=== PATIENT | male | born 1985 | race Caucasian/White ===

== ENCOUNTER 2018-02-07 15:26 | Emergency (ER) | payer MEDICAID, OTHER ==
[~2018-02-07] VITALS: Ht 180.3 cm; Wt 70.4 kg
[~2018-02-07 15:26] MED LIST: CHLO473M2 PO; CLIN300C85 PO; ONDA4TAB6 PO
[2018-02-07] MEDS ORDERED: naloxone 2mg/2ml inj IM STA (15:32)
[2018-02-07] MEDS ORDERED: normal saline 1000ML IV soln IVB ONE (15:35)
[2018-02-07 16:11] VITALS: BP 129/79
== END 2018-02-07 16:25 | disposition home or self-care (01) ==
LOC: ER 15:26
DX: T40.1X4A Poisoning by heroin, undetermined, initial encounter (principal); F11.90 Opioid use, unspecified, uncomplicated; F15.90 Other stimulant use, unspecified, uncomplicated; Z79.2 Long term (current) use of antibiotics; Z79.899 Other long term (current) drug therapy; Y92.89 Other specified places as the place of occurrence of the external cause
CPT/HCPCS: 96372; 99284; J2310; J7030

== ENCOUNTER 2018-03-03 17:40 | Emergency (ER) | payer MEDICAID, OTHER ==
[~2018-03-03] VITALS: Ht 180.3 cm; Wt 72.7 kg
[2018-03-03 17:42] VITALS: BP 123/64
[2018-03-03] MEDS ORDERED: PRED20TA PO (17:57)
[2018-03-03] MEDS ORDERED: AZIT250T2 PO (17:57)
[2018-03-03] MEDS ORDERED: GUAI120015 PO (17:57)
[2018-03-03] MEDS ORDERED: ALBU6.7H INH (17:57)
== END 2018-03-03 18:03 | disposition home or self-care (01) ==
LOC: ER 17:40
DX: J20.9 Acute bronchitis, unspecified (principal); F15.90 Other stimulant use, unspecified, uncomplicated; F11.90 Opioid use, unspecified, uncomplicated; Z79.899 Other long term (current) drug therapy
CPT/HCPCS: 99283

== ENCOUNTER → 2020-07-01 | Emergency (ER) | payer MEDICAID ==
[~2020-07-01] VITALS: Ht 180.3 cm; Wt 84.1 kg
[~2020-07-01] MED LIST changes: +ALBU6.7H9 INH; +CLIN-97 PO; -CLIN300C85 PO; +GUAI120015 PO; +acetaminophen 325mg tablet PO ONE
[2020-07-01 05:37] VITALS: BP 135/83
== END | disposition home or self-care (01) ==
LOC: ER 05:05
DX: L84 Corns and callosities (principal); L60.0 Ingrowing nail; R10.9 Unspecified abdominal pain; F15.90 Other stimulant use, unspecified, uncomplicated; F11.90 Opioid use, unspecified, uncomplicated; F41.9 Anxiety disorder, unspecified; Z79.899 Other long term (current) drug therapy; Z59.0 Homelessness
CPT/HCPCS: 99282

== ENCOUNTER 2024-02-27 00:17 | Emergency (ER) | payer MEDICAID ==
[~2024-02-27] VITALS: Ht 180.3 cm; Wt 68.2 kg
[~2024-02-27 00:17] MED LIST changes: +ALBU6.7H14 INH; -ALBU6.7H9 INH; -acetaminophen 325mg tablet PO ONE
[2024-02-27 00:50] LABS: BILIRUBIN,URINE NEGATIVE (Neg); CLARITY,URINE SLIGHTLY CLOUDY (Clear); COLOR,URINE YELLOW (Yellow); GLUCOSE, URINE NEGATIVE (Neg); KETONES,URINE NEGATIVE (Neg); LEUKOCYTE ESTERASE ,URINE NEGATIVE (Neg); NITRITES, URINE NEGATIVE (Neg); OCCULT BLOOD,URINE LARGE (Neg); PH,URINE 5.5 (4.8-8.0); PROTEIN,URINE 100 mg/dl (Neg)
[2024-02-27 01:04] LABS: UA COLLECTION TYPE NON-SPECIFIED
[2024-02-27 01:05] LABS: BACTERIA,URINE FEW /HPF (Neg); RBC,URINE TNTC /HPF (0-2); SQUAMOUS EPITHELIAL CELL,UR FEW /LPF (FEW); TRANSITIONAL EPI CELLS,URINE FEW /HPF; WBC,URINE 0-4 /HPF (0-4)
[2024-02-27 01:07] LABS: YEAST MODERATE /HPF (NEGATIVE)
[2024-02-27] MEDS ORDERED: CEPH-585 PO (02:32)
[2024-02-27 02:43] VITALS: BP 130/80; PULSE 90; RESP 16; TEMP 98; O2SAT 99
== END 2024-02-27 02:45 | disposition home or self-care (01) ==
LOC: ER 00:18
DX: F11.90 Opioid use, unspecified, uncomplicated (principal); R30.0 Dysuria; R31.9 Hematuria, unspecified; Z79.899 Other long term (current) drug therapy; Z79.2 Long term (current) use of antibiotics; F41.9 Anxiety disorder, unspecified; F15.90 Other stimulant use, unspecified, uncomplicated
CPT/HCPCS: 81001; 87088; 99283

== ENCOUNTER 2024-12-15 09:51 | Emergency (ER) | payer MEDICAID ==
[~2024-12-15] VITALS: Ht 180.3 cm; Wt 87.5 kg
[2024-12-15 10:56] LABS: BILIRUBIN,URINE NEGATIVE (Neg); CLARITY,URINE CLOUDY (Clear); COLOR,URINE YELLOW (Yellow); GLUCOSE, URINE NEGATIVE (Neg); KETONES,URINE NEGATIVE (Neg); LEUKOCYTE ESTERASE ,URINE NEGATIVE (Neg); NITRITES, URINE NEGATIVE (Neg); OCCULT BLOOD,URINE LARGE (Neg); PROTEIN,URINE TRACE mg/dl (Neg); UROBILINOGEN,URINE 0.2 E.U/dL (0.2-1.0)
[2024-12-15 11:01] LABS: UA COLLECTION TYPE FOLEY CATH
[2024-12-15 11:08] LABS: BACTERIA,URINE FEW /HPF (Neg); MUCUS STRANDS NONE SEEN /LPF (Neg); SQUAMOUS EPITHELIAL CELL,UR NONE SEEN /LPF (FEW); WBC,URINE 0-4 /HPF (0-4)
[2024-12-15 11:09] LABS: HYALINE CASTS 0-3 /LPF (NEGATIVE); RENAL CELLS, URINE FEW /HPF
[2024-12-15 11:10] LABS: RBC,URINE TNTC /HPF (0-2)
[2024-12-15] MEDS ORDERED: TAMS-55 PO (11:15)
[2024-12-15] MEDS ORDERED: ONDA-243 PO (11:52)
[2024-12-15] MEDS: ondansetron 4mg rapidly disintigrating tab PO ONE (11:56)
[2024-12-15 12:06] VITALS: BP 134/88; PULSE 98; RESP 18; TEMP 98.5; O2SAT 96
== END 2024-12-15 11:57 | disposition home or self-care (01) ==
LOC: ER 09:52
DX: R33.9 Retention of urine, unspecified (principal); F41.9 Anxiety disorder, unspecified
CPT/HCPCS: 51702; 51798; 74176; 81001; 99284; A4314; 74177; A4358

== ENCOUNTER 2025-02-18 12:30 | Emergency (ER) | payer MEDICAID ==
[~2025-02-18] VITALS: Ht 175.3 cm; Wt 77.6 kg
[~2025-02-18 12:30] MED LIST changes: +ONDA-243 PO
[2025-02-18 12:48] VITALS: BP 144/78; PULSE 96; RESP 18; TEMP 97.8; O2SAT 98
--- NOTE | 2025-02-18 21:01 | Physician Documentation ---
History of Present Illness ~ Chief Complaint: Wrist pain Stated Complaint: L WRIST PAIN DOC NOTE Time Seen by MD: 13:25 Primary Medical Doctor: NONE HPI Patient is seen today with complaints of left wrist drop. Patient states symptoms started this morning. Patient states he has three friends that also have wrist drop. Patient denies any injury denies any pain. He simply states he has left wrist drop and he has been licking up on YouTube the signs and symptoms and states he must have pinched nerve in his upper arm. Patient denies any fevers or recent illness and denies any fevers or chills or chest pain or shortness of breath or abdominal pain or nausea, vomiting, diarrhea. Patient has no other concern or complaint at this time. Tetanus within 5 years: Yes (2014) Medication Reconciliation Allergies: Coded Allergies: No Known Allergies (Unverified , 02/18/25) Scheduled Albuterol Sulfate (Proventil Hfa), 2 PUFFS INH Q6H Chlorhexidine Gluconate (Chlorhexidine Gluconate), 10 ML PO BID Clindamycin HCL* (Clindamycin HCL*), 1 CAP PO Q6H Guaifenesin (Mucinex), 1 TAB PO Q12H Ondansetron Hcl (Zofran), 1 TAB PO Q8H Scheduled PRN ONDANSETRON ODT 4mg tablet (Ondansetron Odt), 1 TABLET PO Q6H PRN for nausea/vomiting Past Medical History Past Medical History: *RENAL/*, Anxiety Past Surgical History: noncontributory Alcohol Use: None Drug Use: methamphetamine, heroin Lives In: Home Occupation: employed Review of Systems Constitutional: Denies: chills, fever, weakness Eyes: Denies: pain, blurred vision ENT: Denies: ear pain, nose pain, throat pain, mouth pain Respiratory: Denies: cough, shortness of breath Cardiovascular: Denies: chest pain, palpitations Gastrointestinal: Denies: abdominal pain, nausea, vomiting Genitourinary: Denies: burning, dysuria Male Genitalia: Denies: penile discharge, testicular pain Neurological: Denies: headache, dizziness Musculoskeletal: Denies: pain, swelling Integumentary: Denies: rash, lesions Allergic/Immunologic: Denies: hives, itching Hematologic/Lymphatic: Denies: no symptoms reported Psychiatric: Denies: depression, anxiety Physical Exam Vital Signs: Temperature: 97.8, Source: Temporal, Heart Rate: 96, Respiratory Rate: 18, BP: 144/78, Pulse Oximetry: 98, Weight: 77.600 Physical Exam General: Awake and Alert, no acute distress. HEENT: Conjunctiva pink, Sclera clear, Mucus Membranes moist. Neck: Supple without masses and tenderness. Resp: Unlabored. Lungs clear to auscultation bilaterally. Heart: Regular Rate and rhythm, normal S1 and S2 without murmur, rub or gallop. Musculoskeletal: Patient on exam seemed to have minimal effort at 1st with wrist extension however with appropriate coaxing the patient actually appears to have 5/5 strength of wrist extension bilaterally. Patient however seems to have difficulty with extension of his digits two through five. I do not appreciate any swelling or injury or laceration. Patient is otherwise neurovascularly intact distally. Motor function in his appears to be intact distally. Extremities: No cyanosis,clubbing or edema. Skin: Warm and Dry. Progress Results/Orders Results/Orders Vital Signs 02/18/25 12:48 Temp 97.8 Pulse 96 Resp 18 B/P (MAP) 144/78 Pulse Ox 98 Medical Decision Making Findings Patient is seen today with complaints of left wrist drop. Patient states symptoms started this morning. Patient states he has three friends that also have wrist drop. Patient denies any injury denies any pain. He simply states he has left wrist drop and he has been licking up on YouTube the signs and symptoms and states he must have pinched nerve in his upper arm. Patient denies any fevers or recent illness and denies any fevers or chills or chest pain or shortness of breath or abdominal pain or nausea, vomiting, diarrhea. Patient has no other concern or complaint at this time. Patient left prior to discharge paperwork being printed. I did however discuss with the patient at length of the need for him to follow up with primary care to get a referral to a neurologist for nerve conduction study and/or further eval and treatment and or likely an orthopedic hand specialist consultation is in order. Patient voiced understanding. Departure Disposition: 07 LEFT AWOL/ELOPED Impression: Primary Impression: Decreased range of motion of finger of left hand Condition: Stable Additional Instructions: Patient left prior to discharge paperwork being printed. I did however discuss with the patient at length of the need for him to follow up with primary care to get a referral to a neurologist for nerve conduction study and/or further eval and treatment and or likely an orthopedic hand specialist consultation is in order. Patient voiced understanding. Referrals: NO PRIMARY CARE PROVIDER (PCP) Signature Scribe Signature: No scribe Attestation: No scribe [facility] Feb 18, 2025 21:01
== END 2025-02-18 14:41 | disposition left against medical advice (07) ==
LOC: ER 12:31
DX: M25.532 Pain in left wrist (principal); F15.90 Other stimulant use, unspecified, uncomplicated; F11.90 Opioid use, unspecified, uncomplicated; F41.9 Anxiety disorder, unspecified; Z79.899 Other long term (current) drug therapy
CPT/HCPCS: 99281; 99282

== ENCOUNTER 2025-03-11 07:55 | Emergency (ER) | payer MEDICAID ==
[~2025-03-11] VITALS: Ht 180.3 cm; Wt 60.9 kg
[2025-03-11 07:57] VITALS: BP 113/73; PULSE 79; RESP 16; TEMP 97.3; O2SAT 98
--- NOTE | 2025-03-11 08:35 | Physician Documentation ---
History of Present Illness ~ Chief Complaint: Medical Clearance Stated Complaint: MED CLEARANCE Time Seen by MD: 08:25 Primary Medical Doctor: NONE HPI This is a 39-year-old gentleman who is here for medical clearance for methamphetamine and fentanyl detox. He has no somatic complaints. Denies any headache, chest pain, difficulty breathing, nausea, vomiting, diarrhea, abdomina l pain. Tetanus within 5 years?: Yes (2014) Medication Reconciliation Allergies: Coded Allergies: No Known Allergies (Unverified , 02/18/25) Scheduled Albuterol Sulfate (Proventil Hfa), 2 PUFFS INH Q6H Chlorhexidine Gluconate (Chlorhexidine Gluconate), 10 ML PO BID Clindamycin HCL* (Clindamycin HCL*), 1 CAP PO Q6H Guaifenesin (Mucinex), 1 TAB PO Q12H Ondansetron Hcl (Zofran), 1 TAB PO Q8H Scheduled PRN ONDANSETRON ODT 4mg tablet (Ondansetron Odt), 1 TABLET PO Q6H PRN for nausea/vomiting Past Medical History Past Medical History: *RENAL/*, Anxiety Past Surgical History: noncontributory Alcohol Use: None Drug Use: methamphetamine, heroin Lives In: Home Occupation: employed Review of Systems ROS 10 point review of systems was performed and unless noted above in HPI is negative for acute process/complaint. Physical Exam Vital Signs: Temperature: 97.3, Source: Temporal, Heart Rate: 79, Respiratory Rate: 16, BP: 113/73, Pulse Oximetry: 98, Weight: 60.850 Physical Exam Physical examination: GENERAL: Awake, alert, oriented, GCS 15, no apparent distress, non-toxic appearing, answers questions, follows commands appropriately. HEENT: Atraumatic, normocephalic, pupils equal, extraocular muscles intact Active gross movements, sclerae anicteric, mucus membranes moist, no stridor. NECK: Midline, no JVD CARDIOVASCULAR: Good skin perfusion without evidence of pallor, mottling. PULMONARY: Nonlabored, symmetric chest rise, no audible wheezing, no accessory muscle use, no respiratory distress, speaking in full sentences. GASTROINTESTINAL: Not distended. NEUROLOGIC: Lucid with normal mental status. Normal facial symmetry. Moves all extremities symmetrically and with purpose. No truncal ataxia. Speech is fluid without evidence of dysarthria or aphasia, no focal deficits appreciated. EXTREMITIES: Acute deformities Skin: warm, dry PSYCHIATRIC: Normal affect, normal insight, normal concentration. Focused exam: [] Progress Results/Orders Results/Orders Vital Signs 03/11/25 07:57 Temp 97.3 Pulse 79 Resp 16 B/P (MAP) 113/73 Pulse Ox 98 Medical Decision Making Findings Facility Status: ED Holds, [facility] process The plan was discussed with the patient, who demonstrates clear understanding of the plan and is in agreement with the plan unless otherwise noted in the chart. All questions have been answered, all concerns were addressed unless otherwise documented. I was available throughout their ED stay for frequent reassessment and questions. Differential Diagnoses (considered and possible or likely): [Methamphetamine abuse, fentanyl abuse, medical clearance for detox, unlikely to represent acute somatic process as he has no complaints at this time. Clinically no evidence of fentanyl intoxication] ??Differential Diagnoses (considered and unlikely, not requiring evaluation currently): [See above] MDM Data Please see [facility] for the following: Independent Historians and external Records Review. Historian: [Patient] Independent Historians: ?[Record review] Medication Management: [Reviewed medication list] Social History and determinants: [Reviewed] Please see the body of the note for the following: Any independent interpretations of ECG, imaging studies. All vitals signs/haemodynamics, ordered tests were independently reviewed and interpreted by myself. Nursing triage complaint and vitals reviewed, additional nursing notes were reviewed as available and I agree unless otherwise noted or documented in contradiction in the chart Vital Signs: Independently reviewed Labs: Independently interpreted Imaging: Independently interpreted Old Medical Records: Independently reviewed, see HPI for relevant summary and information Pulse Oximetry: [99%] interpreted as [normal on room air] by me Additionally notably showing: [Hemodynamically stable] Tests considered but not ordered include: [Hematologic workup and imaging has been considered but does not appear to be necessary given clinical nature of diagnosis] Social Determinants of Health Impact: Patient was evaluated in [facility] [place] due to below par ratio of patient to medical providers. [] Comorbid Conditions Impacting Present Evaluation and Care/Treatment: [Polysubstance abuse] Management Discussions with other Healthcare Providers: [None] Treatment and Disposition Medication Management (Given or considered): []. See EMR for details Consideration for Hospitalization/Escalation/Deescalation of Care: Admission for observation has been considered, [however the patient is able to tolerate p.o., their symptoms are controlled, they are able to rely on oral medications, and their chief complaint/diagnosis can be managed on outpatient basis.] ?ED Course:?[No clinical deterioration] ?Shared decision making:?[Patient is hemodynamically stable for discharge home with follow with their primary care provider. [ ] Specific and cautious return precautions provided and discussed with full understanding. Any incidental findings were also discussed and follow up recommendations given. [] All questions answered. Patient/family were able to verbalize back return precautions. Patient/family agree to plan. Copies of imaging and laboratory studies were provided.] Code status:?FULL Please see the full Electronic Medical Record for full details of nursing documentation, medications list, other records of complete past medical history and conditions, vital signs, laboratory studies, and any radiologic study interpretations by radiologists. Portions of this note were completed using RMI dictation software and as a result there may exist minor errors in spelling. I have reviewed elements of past family and social history and agree as included in note. Departure Disposition: 01 HOME / SELF CARE / HOMELESS Impression: Primary Impression: General medical exam Additional Impression: Polysubstance abuse Condition: Improved Discharge Instructions: Medical Screening Exam Additional Instructions: Your medically cleared for detox facility Referrals: NO PRIMARY CARE PROVIDER (PCP) Education Educated: Patient Educated regarding: diagnosis, treatment, prognosis, need for follow up Signature Scribe Signature: No scribe Attestation: This note accurately reflects clinical decisions, work performed by myself, DO CALEB Zamudio NICHOLAS M DO Mar 11, 2025 08:35
== END 2025-03-11 08:52 | disposition home or self-care (01) ==
LOC: ER 07:56
DX: F19.10 Other psychoactive substance abuse, uncomplicated (principal); F41.9 Anxiety disorder, unspecified; F11.90 Opioid use, unspecified, uncomplicated; Z79.899 Other long term (current) drug therapy
CPT/HCPCS: 99282